=== PATIENT | female | born 1985 ===

== ENCOUNTER 2023-08-12 10:06 | Outpatient (CLI) | payer OTHER | END 2023-08-12 10:15 | disposition home or self-care (01) | LOC: SONOGRAMA 10:06 | PROVIDERS: ATTEND Obstetrics & Gynecology | DX: R31.1 Benign essential microscopic hematuria (principal) ==

== ENCOUNTER 2024-10-12 08:51 | Outpatient (CLI) | payer OTHER | END 2024-10-12 08:59 | disposition home or self-care (01) | LOC: SONOGRAMA 08:51 | PROVIDERS: ATTEND Obstetrics & Gynecology | DX: N13.1 Hydronephrosis with ureteral stricture, not elsewhere classified (principal); R31.1 Benign essential microscopic hematuria ==

== ENCOUNTER 2024-12-21 10:41 | Outpatient (CLI) | payer OTHER ==
[2024-12-21 12:36] LABS: ALBUMIN 4.3 gm/dL (3.4-5.0); BILIRUBIN TOTAL 0.52 mg/dL (0.3-1.2); BILIRUBIN,CONJUGATED 0.12 mg/dL (0.0-0.2); BILIRUBIN,UNCONJUGATED 0.4 mg/dL (0.0-0.6); TOTAL PROTEIN 7.5 gm/dL (6.4-8.2)
== END 2024-12-21 10:42 | disposition home or self-care (01) ==
LOC: LAB 10:41
PROVIDERS: ATTEND Internal Medicine Gastroenterology
DX: R94.5 Abnormal results of liver function studies (principal); K75.9 Inflammatory liver disease, unspecified

== ENCOUNTER → 2024-12-21 | Outpatient (CLI) | payer OTHER | END | disposition home or self-care (01) | LOC: SONOGRAMA 08:55 | PROVIDERS: ATTEND Internal Medicine Gastroenterology | DX: R94.5 Abnormal results of liver function studies (principal); K76.0 Fatty (change of) liver, not elsewhere classified ==

== ENCOUNTER 2025-10-16 11:29 | Outpatient (CLI) | payer OTHER | END 2025-10-16 11:33 | disposition home or self-care (01) | LOC: SONOGRAMA 11:29 | PROVIDERS: ATTEND Obstetrics & Gynecology | DX: R31.1 Benign essential microscopic hematuria (principal); R10.9 Unspecified abdominal pain; R74.01 Elevation of levels of liver transaminase levels ==